=== PATIENT | female | born 1960 | race African-American/Black ===

== ENCOUNTER 2019-04-15 17:27 | Emergency (ER) | payer BC ==
[~2019-04-15] VITALS: Ht 162.6 cm; Wt 61.2 kg
[2019-04-15] MEDS: HYDROcodone/Acetamin 7.5/325 tab ORAL ONE (17:58)
[2019-04-15] MEDS: Morphine Sulfate 2mg/ml Inj(IV/IM USE ONLY) IM ONE (18:55)
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
[2019-04-15] MEDS ORDERED: NORCO 7.5-3251 EACH ORAL (19:44)
[2019-04-15] MEDS ORDERED: IBUPROFEN600 MG ORAL (19:44)
[2019-04-15 20:00] VITALS: BP 146/84
[2019-04-16] MEDS ORDERED: NKM (07:46)
--- NOTE | 2019-04-16 11:08 | Diagnostic Imaging Report ---
Indication: Pain right ankle ankle pain/trauma Comparison: None Findings: 3 views of the right ankle obtained. There is an acute comminuted fracture of the distal fibula which appears to be a spiral type injury. There is a transverse fracture of the medial malleolus and lateral subluxation of the tibiotalar joint. There is a subtle fracture of the posterior malleolus of the tibia as well. Bimalleolar soft tissue swelling is present. There is soft tissue air on the lateral aspect of the ankle. Bones are osteopenic. IMPRESSION: Acute unstable trimalleolar fracture with moderate lateral tibial talar subluxation. Soft tissue air on the lateral side. The lateral component of the fracture may be open. Please correlate clinically.
== END 2019-04-15 20:00 | disposition home or self-care (01) ==
LOC: EDBD 17:27 → EMR 19:40
DX: S82.851A Displaced trimalleolar fracture of right lower leg, initial encounter for closed fracture (principal); W19.XXXA Unspecified fall, initial encounter; Y92.9 Unspecified place or not applicable
CPT/HCPCS: 29505; 73610; 99283; J2270

== ENCOUNTER 2019-04-16 07:38 | Emergency (ER) | payer BC ==
[~2019-04-16] VITALS: Ht 165.1 cm; Wt 63.5 kg
[~2019-04-16 07:38] MED LIST: IBUPROFEN600 MG ORAL; NORCO 7.5-3251 EACH ORAL
[2019-04-16] MEDS ORDERED: NKM (07:46)
--- NOTE | 2019-04-16 07:48 | NUR ---
ED Nurse Note: Pt came in from home due to R ankle fx, came in yesterday and diagnosed with trimalleolar fx, could not follow up with orthopedic Dr and could not get to pharmacy to get pain medication. AOx4, HR 104 at triage, ERMD aware. Will cont to monitor.
[2019-04-16 07:58] VITALS: BP 115/74
[2019-04-16] MEDS ORDERED: Ondansetron ODT 8mg tab ORAL ONE (08:00)
[2019-04-16] MEDS ORDERED: HYDROcodone/Acetamin 5/325 tab ORAL ONE (08:00)
--- NOTE | 2019-04-16 08:05 | Emergency Room Report ---
History of Present Illness General Chief Complaint: Pain Source: Patient Present Illness HPI 58-year-old female history of trimalleolar fracture, seen today, unable to fill her prescription because the pharmacies were closed denies right lower extremity pain, she states no aggravating or relieving factors she states that she has not been able to get her pain medication, no fever no chills, patient presents for evaluation. She states the pain is sharp in nature, is associated with a fracture. Allergies: Coded Allergies: No Known Allergies (Unverified , 04/15/19) Patient History Reviewed Nursing Documentation: PMH: Agreed; PSxH: Agreed Nursing Documentation-PM Past Medical History: No Stated History Review of Systems All Other Systems: negative except mentioned in HPI Physical Exam Vital Signs Date Time Temp Pulse Resp B/P (MAP) Pulse Ox O2 Delivery O2 Flow Rate FiO2 04/16/19 07:44 97.5 104 16 117/77 (90) 98 Room Air Sp02 EP Interpretation: reviewed, normal General Appearance: well appearing, no apparent distress, alert Head: normocephalic, atraumatic Eyes: bilateral eye PERRL, bilateral eye EOMI Neck: supple Gastrointestinal: no guarding, no rebound Musculoskeletal: other - Right lower extremity: 2+ DP, cap refill less than 3 seconds, compartments soft, soft tissue swelling about the right ankle, tenderness to palpation Neurologic: alert, oriented x3 Psychiatric: mood/affect normal Skin: no rash, warm/dry Medical Decision Making Diagnostic Impression: Primary Impression: Trimalleolar fracture of ankle, closed ER Course Patient with a trimalleolar fracture closed, recommend patient follow-up with Ortho, patient was unable to fill her prescription, patient was bridged with 2 tabs of [place] and Zofran, we recommended patient follow with orthopedic surgeon , for operative management, patient's elects to take patient to Ortho on -call. Patient already with a prescription for [place] Precautions discussed, Last Vital Signs Date Time Temp Pulse Resp B/P (MAP) Pulse Ox O2 Delivery O2 Flow Rate FiO2 04/16/19 07:58 97.5 102 18 115/74 98 Room Air Disposition: HOME, SELF-CARE Condition: Stable Referrals: [facility] Patient Instructions: Ankle Fracture, [id number] Additional Instructions: The patient was provided with discharge instructions, notified to follow-up with a primary care doctor and or specialist in the next 24-48 hours, and to return to the ED if they have worsening of their symptoms. Please note that this report is being documented using [employer] technology. This can lead to erroneous entry secondary to incorrect interpretation by the dictating instrument. Issa Galeana M.D. Apr 16, 2019 08:05
[2019-04-16 08:13] VITALS: BP 115/74
--- NOTE | 2019-04-16 08:13 | NUR ---
ER DISCHARGE NOTE: Patient is cleared to be discharged per ERMD, pt is aox4, on room air, with stable vital signs. pt was given dc and prescription instructions, pt was able to verbalize understanding, pt id band removed. pt is able to ambulate with steady gait. pt took all belongings.
== END 2019-04-16 08:13 | disposition home or self-care (01) ==
LOC: EMR 07:45
DX: S82.851A Displaced trimalleolar fracture of right lower leg, initial encounter for closed fracture (principal); X58.XXXA Exposure to other specified factors, initial encounter; Y92.9 Unspecified place or not applicable
CPT/HCPCS: 99282; Q0162